=== PATIENT | male | born 1980 | race Caucasian/White ===

== ENCOUNTER 2023-08-15 13:17 | Emergency (ER) | payer SELFPAY ==
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
[2023-08-15] MEDS: HYDROmorphone 1 MG/ML CARPUJECT IM STA (14:07)
--- NOTE | 2023-08-15 14:52 | XRAY Report ---
PROCEDURE: Shoulder 2+V RT INDICATIONS: fall, shoulder pain TECHNIQUE: 3 views of the shoulder were acquired. COMPARISON: None. FINDINGS: Bones: The distal clavicle is abnormally high riding, seen elevated 1.6 cm. There is mild degenerati ve change seen of the acromial clavicular joint, with remodeling. No acute fracture or dislocation can be seen. The visualized ribs appear intact. Soft tissues: No suspicious soft tissue calcifications. The visualized lungs are within normal limi ts. IMPRESSION: Acromioclavicular separation. Reviewed by: Walter Westfall MD on 08/15/2023 1:51 PM NA Approved by: Walter Westfall MD on 08/15/2023 1:51 PM NA Station ID: [id number]
[2023-08-15] MEDS: oxyCODONE 5 MG TABLET PO STA (15:24)
[2023-08-15] MEDS: KETOROLAC 60 MG/2 ML VIAL IM STA (15:24)
[2023-08-15 15:34] VITALS: BP 126/72; O2SAT 96
== END 2023-08-15 15:32 | disposition home or self-care (01) ==
LOC: ED 13:17
DX: S43.101A Unspecified dislocation of right acromioclavicular joint, initial encounter (principal); V19.3XXA Pedal cyclist (driver) (passenger) injured in unspecified nontraffic accident, initial encounter; Y93.55 Activity, bike riding
CPT/HCPCS: 73030; 96372; 99283; 99284; A9270; J1170

== ENCOUNTER 2024-01-03 23:09 | Emergency (ER) | payer SELFPAY ==
[2024-01-03 23:19] VITALS: BP 132/70; O2SAT 99
[2024-01-04] MEDS: PROPARACAINE 0.5% OPHTH DROPS 15 ML LEFTEYE STA (00:26)
--- NOTE | 2024-01-04 00:32 | ED Physician Documentation ---
PD HPI OPHTHO - Stated complaint Stated Complaint: LT EYE INJ - Chief complaint Chief Complaint: Heent - History obtained from History obtained from: Patient - Additional information Additional information: HPI from patient. Patient c/o left eye painful FB sensation. 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 He says he was wearing eye protection. He does not wear corrective lenses (glasses, contact lenses). He says he has had many previous episodes of metallic foreign bodies which have been removed with cotton swabs, burrs, and bevelled edge of needles (all of these in the ED). He denies visual changes. He says he is up-to-date on tetanus immunization. PD PAST MEDICAL HISTORY - Past Medical History Past Medical History: No Cardiovascular: None Respiratory: None Neuro: None Endocrine/Autoimmune: None GI: None : None HEENT: None Psych: None Musculoskeletal: None Derm: None - Past Surgical History Past Surgical History: Yes General: Appendectomy - Present Medications Home Medications: Ambulatory Orders Medication Instructions Recorded Confirmed Oxycodone HCl/Acetaminophen 1 - 2 each PO Q6H PRN #20 tablet 08/15/23 [Percocet 5-325 mg Tablet] MDD 6 tabs Erythromycin Base [Erythromycin 1 applic LEFTEYE BID #3.5 gm 01/04/24 Ophthalmic Ointment] Oxycodone HCl/Acetaminophen 1 - 2 each PO Q6H PRN #14 tablet 01/04/24 [Percocet 5-325 mg Tablet] - Allergies Allergies/Adverse Reactions: Allergies Allergy/AdvReac Type Severity Reaction Status Date / Time Penicillins Allergy Hives Verified 01/03/24 23:21 - Social History Does the pt smoke?: No Smoking Status: Never smoker Does the pt drink ETOH?: Yes Does the pt have substance abuse?: Yes - Immunizations Immunizations are current?: Yes - POLST Patient has POLST: No PD ED PE NORMAL - Vitals Vital signs reviewed: Yes - General General: Alert and oriented X 3, Well developed/nourished, Other (appears uncomfortable) PD ED PE EXPANDED - HEENT HEENT Visual: 1 - deformity ((no deformity): there is a 2mm diameter black-colored FB with surrounding rust ring) Results - Vitals Vitals: Oxygen O2 Source Room air PD Medical Decision Making - ED course Complexity details: considered differential, d/w patient ED course: Left corneal foreign body is noted, above (physical exam). The exam and my attempts to remove the foreign body were facilitated with occasional instillation of proparacaine drops to the left eye. Initially, after instillation of Proparacaine, I attempted to remove the foreign body using gentle sweeping motions with a sterile cotton swab. A very small, single piece of material was removed with this method. However, the majority of the foreign body remains in the cornea. I then attempted to remove as much as I could of the foreign body and rust ring using the beveled edge of an 18-gauge needle; this was done under slit-lamp magnification. I began to scrape at the layers of the cornea, but it quickly became apparent that none of the material was dislodging and my increasing concern was the depth of both any possible remaining foreign body as well as the rust ring (even under magnification, it is difficult to discern rust ring from particulate material). Further attempts were thus aborted. I discussed this with the patient and advised him that he would need to follow-up with an radio sportscaster. He is provided the information for Dr. Uriel Mar (local radio sportscaster). However, I did explain to the patient that, depending on Dr. Mar schedule/availability, expeditious follow-up with Dr. Mar might not be feasible. I advised patient to contact Dr. Mar's office in the morning when they are next open and, if follow-up within the next 48 hours cannot be arranged, to then contact his primary care provider and/or his insurance provider to inquire about the referral process. He is given erythromycin ophthalmic ointment, with the first application instill ed in the emergency department. I am prescribing this medication, along with a short course of percocet (these are electronically submitted to patient's pharmacy of choice). He is given a take-home pack of percocet in ED, as well. Return precautions reviewed prior to d/c Departure - Departure Disposition: 01 Home, Self Care Clinical Impression: Corneal rust ring of left eye Condition: Good Instructions: ED Foreign Body Cornea W Rust Ring Follow-Up: Uriel Mar MD [Provider Admit Priv/Credential] - Prescriptions: Erythromycin Base [Erythromycin Ophthalmic Ointment] 1 applic LEFTEYE BID #3.5 gm Oxycodone HCl/Acetaminophen [Percocet 5-325 mg Tablet] 1 - 2 each PO Q6H PRN #14 tablet PRN Reason: pain Comments: Unfortunately, the foreign body/material/rust ring in your left eye is too deep for me to safely remove in the emergency department. Thus, you need to follow- up with an radio sportscaster as soon as can be arranged. I have provided the contact information for one of the local ophthalmologists on this discharge sheet. You can contact his office in the morning when they open to see if they can arrange for an appointment (ideally within the next 1 to 2 days). If this cannot be accomplished through this route, contact your primary care provider or your insurance company to inquire about the referral process. I have electronically submitted prescriptions for Percocet (narcotic/opiate pain medication) and erythromycin ophthalmic ointment (antibiotic) to the [facility] pharmacy in [place]. I am prescribing a short course of narcotic pain medication for you. These are potentially dangerous and addictive medications that should be used carefully. These medications may constipate you. Take an eqel-ymu-goptqyq stool softener (docusate) twice daily with plenty of water while taking these medications. If you go 24 hours without a bowel movement, take gixy-dwl-ridacrn miralax, per package instructions. Do not drink or drive while taking these medications. If you received narcotic or sedating medications while in the emergency departm ent, do not drive for 24 hours. Store this medication in a safe, secure place and out of reach of children. It is a violation of federal law to give or sell this medication to another person or to use in a manner other than prescribed. The ED will not refill narcotic prescriptions, including prescriptions lost or stolen. To dispose of unwanted medications: 1. [facility] [address] in [place] has a medication drop box. They accept prescription medications (in pill form) Wednesday through Wednesday 9:00 a.m. to 5:00 p.m. 2. The [facility] accepts prescription medications (in pill form only) for disposal year round. Call for more information. 3. Contact the [facility] for the next [facility] sponsored prescription drug collection event. , [phone], or [phone]; Note that many narcotic pain relievers also contain Tylenol/acetaminophen. Please ensure that your total dose of acetaminophen from all sources does not exceed 3 g (3000 mg) per day. Discharge Date/Time: 01/04/24 01:36
[2024-01-04] MEDS: oxyCODONE/ACET 5/325 Prepack 4 PO STA (01:28)
[2024-01-04] MEDS: ERYTHROMYCIN OPHTH OINT 1 GM TUBE LEFTEYE STA (01:28)
== END 2024-01-04 01:36 | disposition home or self-care (01) ==
LOC: ED 23:09
DX: T15.02XA Foreign body in cornea, left eye, initial encounter (principal); W44.9XXA Unspecified foreign body entering into or through a natural orifice, initial encounter; Y93.89 Activity, other specified; Y92.008 Other place in unspecified non-institutional (private) residence as the place of occurrence of the external cause
CPT/HCPCS: 65222; 99284; J3490